=== PATIENT | female | born 1990 | race Caucasian/White ===

== ENCOUNTER → 2017-08-08 17:52 | Outpatient (CLI) | payer MEDICAID, SELFPAY ==
[2017-08-08 20:04] LABS: Chlamydia Trachomatis by PCR Negative (Negative); Neisserai gonorrhoeae by PCR Negative (Negative); Probe Check PASS; Sample Adequacy Control PASS; Specimen Processing Control PASS
[2017-08-15 14:43] LABS: HPV Reflexed? NOT INDICATED
== END ==
PROVIDERS: Visit Provider Obstetrics & Gynecology
DX: Z12.4 Encounter for screening for malignant neoplasm of cervix (principal); Z11.3 Encounter for screening for infections with a predominantly sexual mode of transmission
CPT/HCPCS: 87491; 87591; 88175; G0145

== ENCOUNTER → 2017-08-23 11:26 | Outpatient (CLI) | payer MEDICAID, SELFPAY ==
[2017-08-23 12:43] LABS: Absolute Lymphocyte Count 1.51 X10^3/ul (0.83-4.51); Absolute Neutrophil Count 5.1 X10^3/uL (2.0-7.7); Basophil# 0.02 X10^3/uL; Basophil% 0.3 % (0-1); Color, Urine Yellow (Yellow); Eosinophil# 0.13 X10^3/uL; Eosinophils% 1.7 % (0-5); Glucose, Dipstick Normal (Normal); Hematocrit 38.4 % (37-47); Ketone-Dipstick Negative (Negative); Leukocyte Esterase-Dipstick Negative /ul (Negative); Lymphocyte # 1.51 X10^3/ul (4.0); Lymphocyte % 20.1 % (19-41); Mean Corp Hgb Conc 33.9 g/gl (32-36); Mean Corpuscular Hgb 29.6 pg (27.0-32.0); Mean Corpuscular Volume 87.5 fL (81-99); Mean Platelet Vol. 9.8 fl (6.2-12.0); Monocyte# 0.77 X10^3/uL; Monocyte% 10.2 % (0-10); Neutrophil # 5.08 X10^3/uL (2.7-7.7); Neutrophil % 67.6 % (47-70); Nitrite-Dipstick Negative (Negative); Occult Blood-Urine 10 /ul (Negative); Platelet Count 305 K/mm3 (150-450); Protein-Dipstick Negative (Negative); RBC Distribution Width CV 13.4 % (11.6-14.6); RBC Distribution Width SD 41.9 fl (35.1-43.9); Red Blood Count 4.39 M/mm3 (4.2-5.4); Specific Gravity, Urine 1.025 (1.002-1.030); Urine Bilirubin Dipstick Negative (Negative); Urine Clarity Cloudy (Clear); Urine Urobilinogen Normal (Normal); White Blood Count 7.5 K/mm3 (4.4-11.0)
[2017-08-23 12:48] LABS: POSITIVE COUNT NO; POSITIVE DIFFERENTIAL NO; POSITIVE MORPHOLOGY NO
[2017-08-23 13:01] LABS: Thyroid Stim Hormone (TSH) 2.07 uIU/mL (0.358-3.74)
[2017-08-23 13:10] LABS: Amphetamine Urine VISTA NEGATIVE (<1000 ng/mL); Barbiturate Urine VISTA NEGATIVE (< 200 ng/mL); Benzodiazepine Urine VISTA NEGATIVE (< 200 ng/mL); Cocaine Urine VISTA NEGATIVE (< 300 ng/mL); Ecstacy Urine VISTA NEGATIVE (< 500 ng/mL); Methadone Urine VISTA NEGATIVE (< 300 ng/mL); PCP Urine VISTA NEGATIVE (< 25 ng/mL); THC Urine VISTA NEGATIVE (< 50 ng/mL); Vista UDS pH Range 5
[2017-08-23 13:13] LABS: COTININE Drug Screen Positive (<200 ng/mL)
[2017-08-24 05:02] LABS: Prenatal RPR NONREACTIVE (NONREACTIVE)
[2017-08-24 11:57] LABS: HEPATITIS B SURFACE AG Negative (Negative); Hep C Antibodies 0.1 s/co ratio (0.0-0.9)
[2017-08-24 13:19] LABS: HIV - WCH Non-Reactive (Nonreactive); Rubella IgG > 500.0 IU/mL
== END ==
PROVIDERS: Visit Provider Obstetrics & Gynecology
DX: Z34.81 Encounter for supervision of other normal pregnancy, first trimester (principal)
CPT/HCPCS: 36415; 80307; 81002; 84443; 85025; 86703; 86762; 86803; 87340

== ENCOUNTER 2017-09-19 18:00 | Emergency (ER) | payer MEDICAID, SELFPAY ==
[2017-09-19 18:01] VITALS: BP 125/73; PULSE 98; RESP 15; TEMP 37.2; O2SAT 98; BMI 32.0
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
== END 2017-09-19 18:45 | disposition home or self-care (01) ==
PROVIDERS: Emergency Provider Emergency Medicine; Family Provider Physician Assistant; PCP Physician Assistant
DX: O26.891 Other specified pregnancy related conditions, first trimester (principal); S16.1XXA Strain of muscle, fascia and tendon at neck level, initial encounter; Z3A.11 11 weeks gestation of pregnancy; V46.5XXA Car driver injured in collision with other nonmotor vehicle in traffic accident, initial encounter; Y93.I9 Activity, other involving external motion; Y92.410 Unspecified street and highway as the place of occurrence of the external cause; Y99.8 Other external cause status
CPT/HCPCS: 99282

== ENCOUNTER → 2018-01-22 13:21 | Outpatient (CLI) | payer MEDICAID, SELFPAY ==
[2018-01-22 13:43] LABS: Hematocrit 35.3 % (37-47); Hemoglobin 11.8 g/dl (12.0-15.0); Mean Corp Hgb Conc 33.4 g/gl (32-36); Mean Corpuscular Volume 89.8 fL (81-99); Mean Platelet Vol. 10.2 fl (6.2-12.0); Platelet Count 283 K/mm3 (150-450); RBC Distribution Width CV 13.9 % (11.6-14.6); RBC Distribution Width SD 45.1 fl (35.1-43.9); Red Blood Count 3.93 M/mm3 (4.2-5.4); White Blood Count 10.9 K/mm3 (4.4-11.0)
[2018-01-22 13:44] LABS: Scan Indicated on CBC? Y/N NO
[2018-01-22 14:12] LABS: Glucose Challenge Gest 1H 50g 105 mg/dL (70-140)
== END ==
PROVIDERS: Visit Provider Obstetrics & Gynecology
DX: Z34.83 Encounter for supervision of other normal pregnancy, third trimester (principal)
CPT/HCPCS: 36415; 82950; 85027

== ENCOUNTER → 2018-02-05 14:43 | Outpatient (CLI) | payer MEDICAID, SELFPAY ==
[2018-02-05 15:11] LABS: ROM Internal Control Test YES-OK TO RESULT pt. (Internal QC); ROM Patient Test Negative (Negative)
--- OUTSIDE RECORDS SUMMARY | 2018-05-10 02:56 | XMS RPT_ITS ---
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 [facility] [address] [place], [place], [address] CT/NG [facility] BY PCR Collected: 08/08/2017 Status: F Source: [place] 11:00 AM [facility] REPOSITORY TYPE CODE TESTS RESULT OUT OF RANGE REFERENCE UNITS LAB L8200.2100 Negative Normal Chlam Negative Trac PCR LAB L8200.2200 Negative Normal NG by Negative PCR Performed By: #### L8200.2000 #### [facility] [address] [place], [address] PAP I-G W/RFX HRHPV Collected: 08/08/2017 Status: F Source: [place] 11:00 AM [facility] REPOSITORY Order Comment: CYTOLOGY INFORMATION: - CLINICAL INFORMATION: HYSTERECTOMY - DATE LMP/MENOPAUSE: LMP - COLLECTION VIAL: Thin Prep Vial - METAL FRAMER SOURCE: CERVICAL/ENDOCERVICAL - COLLECTION TECHNIQUE: BRUSH/SPATULA Specimen Comment: [id number] Specimen Comment: No. of containers..01 ThinPrep Vial TYPE CODE TESTS RESULT OUT OF RANGE REFERENCE UNITS LAB L7400.0800 . Normal DIAGN Comment Result Comment: NEGATIVE FOR INTRAEPITHELIAL LESION AND MALIGNANCY. THIS SPECIMEN WAS RESCREENED PART OF OUR YOUTH TEACHER PROGRAM. LAB L7400.0900 . Normal ADEQ Comment Result Comment: Satisfactory for evaluation. Endocervical and/or squamous metaplastic cells (endocervical component) are present. LAB L7400.1400 . Normal PERFORM Comment Result Comment: Yris Mccullough, Pension Fund Manager (ASCP) LAB L7400.1500 . Normal QC Comment REV Result Comment: Lenore Hart Pension Fund Manager (ASCP) LAB L7400.2575 . Normal TEST METHOD Comment Result Comment: This liquid based ThinPrep(R) pap test was screened with the use of an image guided system. LAB L7400.2600 . Normal . COMM LAB L7400.2700 . Normal PAPSMR Comment Result Comment: The Pap smear is a screening test designed to aid in the detection of premalignant and malignant conditions of the uterine cervix. It is not a diagnostic procedure and should not be used as the sole means of detecting cervical cancer. Both false-positive and false-negative reports do occur. LAB L7400.2800 . Normal HPV RFLX Comment Result Comment: The HPV DNA reflex criteria were not met with this specimen result therefore, no HPV testing was performed. Performed at: - [facility] [id number] Nipping Machine Operator: Criss Lee MD, Phone: [phone] Performed By: #### L7400.0350 #### [facility] (refer to report for specific site) refer to report for address and phone number GROUP A STREP BY Collected: 06/27/2017 Status: F Source: [place] PCR 10:38 PM [facility] REPOSITORY TYPE CODE TESTS RESULT OUT OF REFERENCE UNITS RANGE LAB GASSRC Throat Swab GAS Specimen Source LAB PCRGAS Negative for Group A Strep Group A PCR Streptococcus by PCR. Result Comment: This test was developed and its performance characteristics determined by [facility] [place] ([facility]). It has not been cleared or approved by the FDA. [facility] is regulated under CLIA as qualified to perform high-complexity testing. This test is used for clinical purposes. It should not be regarded as inv estigational or for research. Performed By: #### GASPCR #### [facility] [address] [place], [place] [address] PROGRESS Observed: 06/27/2017 Status: COMPLETED Source: [place] 1:13 PM [facility] REPOSITORY HNO ID: [id number] Author: Manas Donnelly (Morgan) Service: (none) Author Type: Physician Embedded Software Developer Type: Progress Notes Filed: 06/27/2017 1:41 PM Note Text: Subjective HPI Pt presents withcough, sore throat, and congestion for 2 days. No nvd or diarrhea. No fever. She does have asthma. She hasn't had to use her inhaler. Her brother is ill as well with similar sx. Review of Systems Constitutional: Negative for fever. HENT: Positive for congestion and sore throat. Respiratory: Positive for cough. All other systems reviewed and are negative. PAST MEDICAL HISTORY Diagnosis Date - Eczema Current Outpatient Prescriptions: Liyhslnldtjjiws-Vjteklfxl-CW (BROMFED DM) 2-30-10 mg/5 mL syrup Take 10 mL by mouth four times daily as needed. Disp: 200 mL Rfl: 0 sulfamethoxazole-trimethoprim (BACTRIM DS) 800-160 mg per tablet Take 1 tablet by mouth twice daily. Disp: Rfl: No current facility-administered medications for this visit. PAST SURGICAL HISTORY Procedure Laterality Date - PAST SURGICAL HISTORY OF Right 1998 elbow fx repair FAMILY HISTORY Problem Relation Age of Onset - Cancer Maternal Grandfather lung - Ischemic Heart Disease Maternal Grandfather Social History Substance Use Topics - Smoking status: Current Every Day Smoker Packs/day: 0.75 - Smokeless tobacco: Never Used - Alcohol use Yes BP 100/60 Pulse 100 Temp 36 ?C (96.8 ?F) (Left Tympanic) Resp 14 Wt 69.4 kg (153 lb) SpO2 98% BMI 27.98 kg/m? Objective Physical Exam Constitutional: She is oriented to person, place, and time and well-developed, well-nourished, and in no distress. HENT: Head: Normocephalic and atraumatic. Right Ear: Tympanic membrane, external ear and ear canal normal. Left Ear: Tympanic membrane, external ear and ear canal normal. Nose: Mucosal edema and rhinorrhea present. Mouth/Throat: Uvula is midline and mucous membranes are normal. Posterior oropharyngeal edema and posterior oropharyngeal erythema present. No oropharyngeal exudate or tonsillar abscesses. Cardiovascular: Normal rate, regular rhythm and normal heart sounds. Pulmonary/Chest: Effort normal and breath sounds normal. Neurological: She is alert and oriented to person, place, and time. Skin: Skin is warm and dry. Psychiatric: Affect and judgment normal. Nursing note and vitals reviewed. ASSESSMENT/PLAN: 1. Sore throat - ICD9: 462, ICD10: J02.9 (primary diagnosis) - Rapid Strep negative in the office today and Throat culture pending - Discussed supportive care treatment with fluids, rest and analgesia. - RAPID STREP TEST B/O - GROUP A STREPTOCOCCUS BY PCR 2. Viral URI with cough - ICD9: 465.9, ICD10: J06.9, B97.89 - Discussed viral etiology and rationale for treatment. - Symptomatic treatment with prn analgesia - Supportive care with fluids and rest - Given Bromfed for sx. If not improved in one week follow up. Pt agreeable with this plan. BASILIA Orozco Observed: 06/27/2017 Status: COMPLETED Source: [place] 1:00 PM [facility] REPOSITORY Office Visit (WSTR) JARETH BALES ([id number]) 1990 F Date Time Provider Department 06/27/17 1:00 PM MANAS DONNELLY) WSTR During your visit today, we recorded the following information about you: Temperature Pulse Respiration Blood pressure 96.8 degrees 100/minute 14/minute 100/60 Weight 69.4 kg Manas Donnelly) 06/27/2017 1:41 PM Signed Subjective HPI Pt presents withcough, sore throat, and congestion for 2 days. No nvd or diarrhea. No fever. She does have asthma. She hasn't had to use her inhaler. Her brother is ill as well with similar sx. Review of Systems Constitutional: Negative for fever. HENT: Positive for congestion and sore throat. Respiratory: Positive for cough. All other systems reviewed and are negative. PAST MEDICAL HISTORY Diagnosis Date - Eczema Current Outpatient Prescriptions: Fmjhmynkgbokimb-Smgfjgper-FV (BROMFED DM) 2-30-10 mg/5 mL syrup Take 10 mL by mouth four times daily as needed. Disp: 200 mL Rfl: 0 sulfamethoxazole-trimethoprim (BACTRIM DS) 800-160 mg per tablet Take 1 tablet by mouth twice daily. Disp: Rfl: No current facility-administered medications for this visit. PAST SURGICAL HISTORY Procedure Laterality Date - PAST SURGICAL HISTORY OF Right 1998 elbow fx repair FAMILY HISTORY Problem Relation Age of Onset - Cancer Maternal Grandfather lung - Ischemic Heart Disease Maternal Grandfather Social History Substance Use Topics - Smoking status: Current Every Day Smoker Packs/day: 0.75 - Smokeless tobacco: Never Used - Alcohol use Yes BP 100/60 Pulse 100 Temp 36 ?C (96.8 ?F) (Left Tympanic) Resp 14 Wt 69.4 kg (153 lb) SpO2 98% BMI 27.98 kg/m? Objective Physical Exam Constitutional: She is oriented to person, place, and time and well-developed, well-nourished, and in no distress. HENT: Head: Normocephalic and atraumatic. Right Ear: Tympanic membrane, external ear and ear canal normal. Left Ear: Tympanic membrane, external ear and ear canal normal. Nose: Mucosal edema and rhinorrhea present. Mouth/Throat: Uvula is midline and mucous membranes are normal. Posterior oropharyngeal edema and posterior oropharyngeal erythema present. No oropharyngeal exudate or tonsillar abscesses. Cardiovascular: Normal rate, regular rhythm and normal heart sounds. Pulmonary/Chest: Effort normal and breath sounds normal. Neurological: She is alert and oriented to person, place, and time. Skin: Skin is warm and dry. Psychiatric: Affect and judgment normal. Nursing note and vitals reviewed. ASSESSMENT/PLAN: 1. Sore throat - ICD9: 462, ICD10: J02.9 (primary diagnosis) - Rapid Strep negative in the office today and Throat culture pending - Discussed supportive care treatment with fluids, rest and analgesia. - RAPID STREP TEST B/O - GROUP A STREPTOCOCCUS BY PCR 2. Viral URI with cough - ICD9: 465.9, ICD10: J06.9, B97.89 - Discussed viral etiology and rationale for treatment. - Symptomatic treatment with prn analgesia - Supportive care with fluids and rest - Given Bromfed for sx. If not improved in one week follow up. Pt agreeable with this plan. Manas Donnelly PA-C Referring Provider: SELF [200] Allergies As of Date: 06/27/2017 (No Known Allergies) Date Reviewed: 09/24/2015 Reviewed by: Eliane Tran LPN - Fully Assessed Reason for Visit: Cough [28] Chest Congestion [236] Primary Visit Diagnosis:Sore throat [J02.9] Other Visit Diagnosis:Viral URI with cough [J06.9, B97.89] Order(s):RAPID STREP TEST B/O [6396425] Order #: [id number] GROUP A STREPTOCOCCUS BY PCR [SQGASPCR] Order #: [id number] Kqkezbtpydjkqdm-Arplgktwm-PG (BROMFED DM) 2-30-10 mg/5 mL syrupTake 10 mL by mouth four times daily as needed.Disp: 200 mLRfl: 0 Prescriptions as of 06/27/2017 Sig: BROMPHENIRAMINE-PSEUDOEPHEDRI* Take 10 mL by mouth four time* SULFAMETHOXAZOLE 800 MG-TRIME* Take 1 tablet by mouth twice * Problem List As Of Date 06/27/2017 Noted Resolved Breast abscess [N61.1] INVALID FOR* Prescriptions ordered this encounter Disp Refills Start End DYCBCZHYNOVWRLN-GVTVMUGCKPEVNBA-FS 2* 200 * 0 06/27/2017 Route: ORAL Sig: Take 10 mL by mouth four times daily as needed. Encounter Status:Closed by MANAS DONNELLY PA-C on 06/27/17 ALLERGIES ALLERGIES DATE TYPE / CODE NAME / CODE REACTION SEVERITY SOURCE 03/08/2018 Drug No Known Unknown [place] Allergy/224099226(S Allergies/F0019 [facility]) [address](RXNORM) Hospital Repository Miscellaneous No Known Drug Moderate [place] Pomereeligio Allergy/466606544(S Allergies (Severity [facility]) [facility] Drug NO KNOWN [place] Class/342823008(SNO ALLERGIES [facility]) [place] Repository ENCOUNTERS ENCOUNTERS ADMIT/DISCHARGE ACCOUNT ADMITTING ENCOUNTER LOCATION SOURCE NUMBER CLASS 03/09/2018/03/09/[id number] ing:WPOUT Repository 03/08/2018/03/08/[id number] ing:WPOUTRoom Repository : WP013 03/05/2018 [id number] [facility] ing:LABSPEC Repository 02/05/2018 [id number] [facility] ing:LABSPEC Repository 01/22/2018 [id number] [facility] ing:WOBLAB Repository 10/31/2017/11/01/[id number] YARA [facility] [place] [address] 18 [place]: ERBed: B [facility] Repository 09/19/2017/09/20/19 [id number] Emergency [address] ing:ED Repository 08/23/2017 [id number] [facility] ing:WOBLAB Repository 08/08/2017 [id number] [facility] ing:LABSPEC Repository 06/27/2017/06/29/19 [id number] Ambulatory [address] Repository PAYERS PAYERS ENCOUNTER GUARANTOR PAYER SUBSCRIBER SOURCE 03/09/2018 JARETH R Primary Insurance:[facility] Diana [facility] [address] [place] Number: [id number] Hospital [address]Sls: 330 [id number] Repository [phone] () Date:[id number] [address] [address]V: 03/09/2018 Secondary NOT GIVENUNK [place] Insurance:SELF PAY [facility] Number: Effective Repository Date:2018-03-09 03/08/2018 JARETH R Primary Insurance:[facility] Diana FischerFaisalAurora East HospitalDOB: [address], [place] Number: [id number] Hospital [address]Xlz: 330 [id number] Repository [phone] () Date:[id number] [address] [address]LU: 03/08/2018 Secondary NOT GIVENUNK [place] Insurance:SELF PAY [facility] Number: Effective Repository Date:2018-03-08 03/05/2018 JARETH R Primary Insurance:[facility] Diana FischerFaisalAurora East HospitalDOB: [address] [place] Number: [id number] Hospital [address]Ecv: 330 [id number] Repository [phone] () Date:[id number] [address]OW: 03/05/2018 Secondary NOT GIVENUNK [place] Insurance:SELF PAY [facility] Number: Effective Repository Date:2018-03-05 02/05/2018 [place] R Primary Insurance:[facility]: [address] Number: [id number] Hospital [address]Gmx: 330 [id number] Repository [phone] (HP) Date:[id number] [address]RW: 02/05/2018 Secondary NOT GIVENUNK [place] Insurance:SELF PAY [facility] Number: Effective Repository Date:2018-02-05 01/22/2018 [place] R Primary Insurance:[facility]ESD[facility]: [address] Number: [id number] Hospital [address]Bbp: 330 [id number] Repository [phone] (HP) Date:[id number] [address]UJ: 01/22/2018 Secondary NOT GIVENUNK [place] Insurance:SELF PAY [facility] Number: Effective Repository Date:2018-01-22 10/31/2017 [facility] Booker Mayo GARNESDOB: Insurance:[facility]: [facility] [id number] [id number] [facility] APT Repository [phone]: Number: AAPT [id number] [address] [place] [address] () Date:Plan Name:[id number] 09/19/2017 [facility] Primary Insurance:[facility] Diana [facility]: [address] Number: [id number] Hospital [address]Spx: 330 [id number] Repository [phone] () Date:[id number] [address]QY: 09/19/2017 Secondary NOT GIVENUNK [place] Insurance:SELF PAY [facility] Number: Effective Repository Date:2017-09-19 08/23/2017 [facility] Primary Insurance:[facility] systemD[facility]: [facility] [address] [place] [address], [place] Number: [id number] Hospital [address]Yyl: [phone] [id number] Repository [phone] () Date:0400-07-19TZ [address] [address]MX: 08/23/2017 Secondary NOT GIVENUNK Faisal Insurance:SELF PAY [facility] Number: Effective Repository Date:2017-08-23 08/08/2017 [place] R [facility] [place] Number: [id number] Hospital [address]Iai: [phone] [id number] Repository [phone] () Date:[id number] [address] [address]UE: 08/08/2017 Secondary NOT GIVENUNK [place] Insurance:SELF PAY [facility] Number: Effective Repository Date:2017-08-08
== END ==
PROVIDERS: Visit Provider Obstetrics & Gynecology
DX: Z34.83 Encounter for supervision of other normal pregnancy, third trimester (principal)
CPT/HCPCS: 84112

== ENCOUNTER → 2018-03-05 14:34 | Outpatient (CLI) | payer MEDICAID, SELFPAY | PROVIDERS: Visit Provider Obstetrics & Gynecology | DX: Z36.85 Encounter for antenatal screening for Streptococcus B (principal) | CPT/HCPCS: 87081 ==

== ENCOUNTER 2018-03-08 04:30 | Outpatient (CLI) | payer MEDICAID, SELFPAY ==
[2018-03-08 05:02] VITALS: BMI 39.0
[2018-03-08] MEDS: 0.9% Saline Lock 10 ML Syringe IV (05:20)
[2018-03-08 05:28] LABS: Bacteria 0 SEEN /hpf (None Seen); Mucous, Urine 0 SEEN /hpf (<or=2+); Red Blood Cells-Urine 0 SEEN /hpf (0-5)
[2018-03-08 05:29] LABS: Color, Urine Yellow (Yellow); Glucose, Dipstick Normal (Normal); Ketone-Dipstick Negative (Negative); Leukocyte Esterase-Dipstick 100 /ul (Negative); Nitrite-Dipstick Negative (Negative); Occult Blood-Urine 10 /ul (Negative); Protein-Dipstick Negative (Negative); Specific Gravity, Urine 1.015 (1.002-1.030); Urine Bilirubin Dipstick Negative (Negative); Urine Clarity Clear (Clear); Urine Urobilinogen Normal (Normal)
[2018-03-08 05:39] LABS: Hematocrit 35.7 % (37-47); Mean Corp Hgb Conc 33.6 g/gl (32-36); Mean Corpuscular Hgb 30.5 pg (27.0-32.0); Mean Corpuscular Volume 90.8 fL (81-99); Mean Platelet Vol. 10.1 fl (6.2-12.0); Platelet Count 280 K/mm3 (150-450); RBC Distribution Width CV 14.3 % (11.6-14.6); RBC Distribution Width SD 46.7 fl (35.1-43.9); Red Blood Count 3.93 M/mm3 (4.2-5.4); White Blood Count 11.2 K/mm3 (4.4-11.0)
[2018-03-08 05:41] LABS: Scan Indicated on CBC? Y/N NO
[2018-03-08 05:44] LABS: ALB/GLOB Ratio 0.7 RATIO (0.9-2.4); AST(SGOT) 10 U/L (15-37); Alanine Aminotransfer ALT/SGPT 20 U/L (13-56); Albumin, Serum 2.6 g/dL (3.2-5.0); Alkaline Phosphatase 69 U/L (45-117); Anion Gap 10 (5-15); BUN 12 mg/dL (7-18); Calcium,Total 8.5 mg/dL (8.5-10.1); Chloride 109 mmol/L (98-107); Creatinine, Serum 0.44 mg/dL (0.55-1.02); EST Glomerular Filtration Rate 182 mL/min (>60); Est Glom Filt Rate - Afr Amer 220 mL/min (>60); Estimated Creatinine Clearance 154.59 ml/min; Globulin 3.5 g/dL (2.2-4.2); Glucose 97 mg/dL (74-106); Potassium 3.9 mmol/L (3.5-5.1); Protein, Total 6.1 g/dL (6.4-8.2); Sodium Level 139 mmol/L (136-145)
[2018-03-08 05:49] LABS: ROM Internal Control Test YES-OK TO RESULT pt. (Internal QC); ROM Patient Test Negative (Negative)
[2018-03-08 05:59] LABS: Squamous Epithelial Cells - UA 5-10 SEEN /hpf (5-10); White Blood Cells 5-10 SEEN /hpf (0-5)
--- NOTE | 2018-03-08 07:53 | OB.TRI.NOTE ---
- Problem List (1) 35 weeks gestation of Status: Acute (2) contractions Status: Acute History of Present Illness Date of Service: 03/08/18 Was patient seen by the physician?: Yes Reason For Visit: R/O LABOR Final LYLE: 04/07/18 Final LYLE Source: US <20 weeks Gestational age: 35 Weeks and 5 Days History of Present Illness: 27yo @ 35 5/7wga with c/o painful contractions that started overnight. She was seen in office 03/05/17 and exam /3. She denies fever, chills, nausea, vomiting, diarrhea, dysuria, frequency, urgency, hematuria. +FM, no vaginal bleeding. She has some discharge and is uncertain of leaking of fluid. Allergies No Known Allergies Allergy (Verified 03/08/18 05:04) Laboratory Studies: Laboratory Tests 03/08/18 03/08/18 03/08/18 Range/Units 05:20 05:20 04:50 WBC 11.2 H (4.4-11.0) K/mm3 RBC 3.93 L (4.2-5.4) M/mm3 Hgb 12.0 (12.0-15.0) g/dl Hct 35.7 L (37-47) % MCV 90.8 (81-99) fL MCH 30.5 (27.0-32.0) pg MCHC 33.6 (32-36) g/gl RDW 14.3 (11.6-14.6) % RDW Differential 46.7 H (35.1-43.9) fl Plt Count 280 (150-450) K/mm3 MPV 10.1 (6.2-12.0) fl Sodium 139 (136-145) mmol/L Potassium 3.9 (3.5-5.1) mmol/L Chloride 109 H (98-107) mmol/L Carbon Dioxide 20.0 L (21.0-32.0) mmol/L Anion Gap 10 (5-15) BUN 12 (7-18) mg/dL Creatinine 0.44 L (0.55-1.02) mg/dL Estim Creat Clear Calc 154.59 ml/min Est GFR (MDRD) Af Amer 220 (>60) mL/min Est GFR (MDRD) Non-Af 182 (>60) mL/min BUN/Creatinine Ratio 27.0 H (10-20) RATIO Glucose 97 (74-106) mg/dL Calcium 8.5 (8.5-10.1) mg/dL Total Bilirubin 0.20 (0.20-1.00) mg/dL AST 10 L (15-37) U/L ALT 20 (13-56) U/L Alkaline Phosphatase 69 (45-117) U/L Total Protein 6.1 L (6.4-8.2) g/dL Albumin 2.6 L (3.2-5.0) g/dL Globulin 3.5 (2.2-4.2) g/dL Albumin/Globulin Ratio 0.7 L (0.9-2.4) RATIO Urine Color (Yellow) Urine Clarity (Clear) Urine pH (5.0 - 8.0) Ur Specific [place] (1.002-1.030) Urine Protein (Negative) mg/dl Urine Glucose (UA) (Normal) mg/dl Urine Ketones (Negative) mg/dl Urine Occult Blood (Negative) /ul Urine Nitrite (Negative) Urine Bilirubin (Negative) mg/dL Urine Urobilinogen (Normal) mg/dl Ur Leukocyte Esterase (Negative) /ul Urine RBC (0-5) /hpf Urine WBC (0-5) /hpf Ur Squamous Epith Cells (5-10) /hpf Urine Bacteria (None Seen) /hpf Urine Mucus (<or=2+) /hpf Vag Amniotic Fld Detect Negative (Negative) 03/08/18 Range/Units 04:40 WBC (4.4-11.0) K/mm3 RBC (4.2-5.4) M/mm3 Hgb (12.0-15.0) g/dl Hct (37-47) % MCV (81-99) fL MCH (27.0-32.0) pg MCHC (32-36) g/gl RDW (11.6-14.6) % RDW Differential (35.1-43.9) fl Plt Count (150-450) K/mm3 MPV (6.2-12.0) fl Sodium (136-145) mmol/L Potassium (3.5-5.1) mmol/L Chloride (98-107) mmol/L Carbon Dioxide (21.0-32.0) mmol/L Anion Gap (5-15) BUN (7-18) mg/dL Creatinine (0.55-1.02) mg/dL Estim Creat Clear Calc ml/min Est GFR (MDRD) Af Amer (>60) mL/min Est GFR (MDRD) Non-Af (>60) mL/min BUN/Creatinine Ratio (10-20) RATIO Glucose (74-106) mg/dL Calcium (8.5-10.1) mg/dL Total Bilirubin (0.20-1.00) mg/dL AST (15-37) U/L ALT (13-56) U/L Alkaline Phosphatase (45-117) U/L Total Protein (6.4-8.2) g/dL Albumin (3.2-5.0) g/dL Globulin (2.2-4.2) g/dL Albumin/Globulin Ratio (0.9-2.4) RATIO Urine Color Yellow (Yellow) Urine Clarity Clear (Clear) Urine pH 7.0 (5.0 - 8.0) Ur Specific [place] 1.015 (1.002-1.030) Urine Protein Negative (Negative) mg/dl Urine Glucose (UA) Normal (Normal) mg/dl Urine Ketones Negative (Negative) mg/dl Urine Occult Blood 10 H (Negative) /ul Urine Nitrite Negative (Negative) Urine Bilirubin Negative (Negative) mg/dL Urine Urobilinogen Normal (Normal) mg/dl Ur Leukocyte Esterase 100 H (Negative) /ul Urine RBC 0 SEEN (0-5) /hpf Urine WBC 5-10 SEEN (0-5) /hpf Ur Squamous Epith Cells 5-10 SEEN (5-10) /hpf Urine Bacteria 0 SEEN (None Seen) /hpf Urine Mucus 0 SEEN (<or=2+) /hpf Vag Amniotic Fld Detect (Negative) Review of Systems Constitutional: Denies: Chills, Fever Gastrointestinal: Denies: Abdominal Pain, Diarrhea, Nausea, Vomiting Genitourinary: Denies: Dysuria, Frequency, Hematuria Physical Exam Vitals: AVSS General: Alert, Oriented x3, Cooperative, No apparent distress HEENT: Atraumatic, Normocephalic Abdomen: Soft, Non Tender, Non-Distended, Gravid Neurological: Neuro grossly intact NST - FHR Rate Baby A Baseline: 130 Variability:: Moderate Accelerations:: 15 x 15 Decelerations:: None NST Reactive:: Yes FHR Category:: Category I Uterine Activity:: 2-05/29 Impression/Plan 27yo @ 35 5/7wga with threatened labor, Cat I FHR -Betamethasone for FLM -U/A - possibly contaminated vs. UTI. Rx Keflex, Urine culture pending -Will continue to observe at this time -Rapid GBS pending
[2018-03-08] MEDS: Betamethasone/Betamethasone 30 MG/5 ML Vial 12 MG IM (08:10)
[2018-03-08] MEDS: Cephalexin 500 MG Capsule PO (08:49)
[2018-03-08 09:19] LABS: Group B Strep DNA By PCR Negative (Negative); Internal Control PASS; Probe Check PASS; Specimen Processing Control PASS
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
== END 2018-03-08 13:20 | disposition home or self-care (01) ==
LOC: WPOUT 04:54 → WP 04:55
PROVIDERS: Referring Provider Obstetrics & Gynecology; Visit Provider Obstetrics & Gynecology
DX: O60.03 Preterm labor without delivery, third trimester (principal); Z3A.35 35 weeks gestation of pregnancy
CPT/HCPCS: 36415; 59025; 59050; 80053; 81001; 84112; 85027; 87081; 87653; 99218; A4216; G0378; J0702

== ENCOUNTER 2018-03-09 08:00 | Outpatient (CLI) | payer MEDICAID, SELFPAY ==
[2018-03-08 05:02] VITALS: BMI 39.0
[2018-03-09] MEDS: Betamethasone/Betamethasone 30 MG/5 ML Vial 12 MG IM (08:22)
--- NOTE | 2018-03-09 10:53 | OB.TRI.NOTE ---
- Problem List (1) 35 weeks gestation of Status: Acute History of Present Illness Date of Service: 03/09/18 Reason For Visit: CELESTONE SHOT Date of Service: 03/09/18 Final LYLE Source: US <20 weeks Gestational age: 35 weeks 6 days History of Present Illness: 27yo @ 35 6/7 weeks gestational age presents for betamethasone #2. She was seen 03/08/18 in triage and observed with contractions and cervix dilated to 2-3 cm. Allergies No Known Allergies Allergy (Verified 03/08/18 05:04) Impression/Plan Betamethasone #2/2 given. D/c home.
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
== END 2018-03-09 08:30 | disposition home or self-care (01) ==
LOC: WPOUT 08:03 → WP 08:04
PROVIDERS: Referring Provider Obstetrics & Gynecology; Visit Provider Obstetrics & Gynecology
DX: O60.03 Preterm labor without delivery, third trimester (principal); Z3A.35 35 weeks gestation of pregnancy
CPT/HCPCS: 96372; 99218; G0378; J0702

== ENCOUNTER 2018-03-15 18:00 | Outpatient (CLI) | payer MEDICAID, SELFPAY ==
[2018-03-15 18:19] VITALS: BMI 37.9
[2018-03-15 18:31] LABS: Bacteria 0 SEEN /hpf (None Seen); Mucous, Urine 0 SEEN /hpf (<or=2+)
[2018-03-15 19:45] LABS: Color, Urine Yellow (Yellow); Glucose, Dipstick Normal (Normal); Ketone-Dipstick Negative (Negative); Leukocyte Esterase-Dipstick 500 /ul (Negative); Nitrite-Dipstick Negative (Negative); Occult Blood-Urine 25 /ul (Negative); Protein-Dipstick Negative (Negative); Urine Bilirubin Dipstick Negative (Negative); Urine Clarity Clear (Clear); Urine Urobilinogen Normal (Normal)
[2018-03-15 20:11] LABS: Amorphous Sediment 1+ PHOS; Red Blood Cells-Urine 0-5 SEEN /hpf (0-5); Squamous Epithelial Cells - UA 5-10 SEEN /hpf (5-10); White Blood Cells 10-25 SEEN /hpf (0-5)
[2018-03-15 20:13] LABS: ROM Internal Control Test YES-OK TO RESULT pt. (Internal QC); ROM Patient Test Negative (Negative)
--- NOTE | 2018-03-16 04:32 | OB.TRI.HP_ITS ---
History of Present Illness Date of Service: 03/15/18 Was patient seen by the physician?: No Reason For Visit: CONTRACTIONS Date of Service: 03/15/18 Final LYLE: 04/07/18 Final LYLE Source: US <20 weeks Gestational age: 36 Weeks and 5 Days History of Present Illness: 27 yo with h/o prior 38 wk delivery presents with UCs. ? SROM for labor check. Seen approx 1 wk ago for UCs and given betamethasone then as ruled out for labor. Allergies No Known Allergies Allergy (Verified 03/08/18 05:04) Laboratory Studies: Laboratory Tests 03/15/18 03/15/18 Range/Units 19:39 18:25 Urine Color Yellow (Yellow) Urine Clarity Clear (Clear) Urine pH 7.0 (5.0 - 8.0) Ur Specific [place] 1.010 (1.002-1.030) Urine Protein Negative (Negative) mg/dl Urine Glucose (UA) Normal (Normal) mg/dl Urine Ketones Negative (Negative) mg/dl Urine Occult Blood 25 H (Negative) /ul Urine Nitrite Negative (Negative) Urine Bilirubin Negative (Negative) mg/dL Urine Urobilinogen Normal (Normal) mg/dl Ur Leukocyte Esterase 500 H (Negative) /ul Urine RBC 0-5 SEEN (0-5) /hpf Urine WBC 10-25 SEEN (0-5) /hpf Ur Squamous Epith Cells 5-10 SEEN (5-10) /hpf Amorphous Sediment 1+ PHOS Urine Bacteria 0 SEEN (None Seen) /hpf Urine Mucus 0 SEEN (<or=2+) /hpf Vag Amniotic Fld Detect Negative (Negative) Physical Exam Cervix Dilation (cm): 4 - per RN check. No change on recheck NST - FHR Rate Baby A Baseline: 120-130s avg variability. Accels to 150s Variability:: Moderate Accelerations:: 15 x 15 Decelerations:: None NST Reactive:: Yes, Appropriate for gestational age FHR Category:: Category I Uterine Activity:: no regular UCs Impression/Plan 36 5/7 wk EGA female FALSE labor UA neg for bacteria. ROM test NEGATIVE Home return if inc s/sx of labor Keep next ofc appt
== END 2018-03-15 20:40 | disposition home or self-care (01) ==
LOC: WPOUT 18:14 → WP 18:15
PROVIDERS: Visit Provider Obstetrics & Gynecology
DX: O47.03 False labor before 37 completed weeks of gestation, third trimester (principal); Z3A.36 36 weeks gestation of pregnancy
CPT/HCPCS: 59025; 59050; 81001; 84112; 99218; G0378

== ENCOUNTER 2018-03-18 21:30 | Inpatient (IN) | payer MEDICAID, SELFPAY ==
[2018-03-18 22:30] VITALS: BMI 39.5
[2018-03-18] MEDS: Lactated Ringers 1,000 ML 50 ML IV ×2 (22:30→23:42)
[2018-03-18 22:57] LABS: Hematocrit 36.4 % (37-47); Hemoglobin 11.9 g/dl (12.0-15.0); Mean Corp Hgb Conc 32.7 g/gl (32-36); Mean Corpuscular Hgb 29.9 pg (27.0-32.0); Mean Corpuscular Volume 91.5 fL (81-99); Mean Platelet Vol. 10.1 fl (6.2-12.0); Platelet Count 275 K/mm3 (150-450); RBC Distribution Width CV 14.7 % (11.6-14.6); RBC Distribution Width SD 48.8 fl (35.1-43.9); Red Blood Count 3.98 M/mm3 (4.2-5.4); White Blood Count 12.2 K/mm3 (4.4-11.0)
[2018-03-18 23:02] LABS: Scan Indicated on CBC? Y/N NO
[2018-03-19] VITALS (7 sets, daily range): BP systolic 114–132; BP diastolic 55–84; PULSE 78–111; RESP 16–18; TEMP 36.2–36.7; O2SAT 97–100
[2018-03-19] MEDS: fentaNYL-bupivacaine (epidural) 100 ML BAG EPIDURAL
[2018-03-19] MEDS: Acetaminophen 325 MG Tablet PO (03:21)
[2018-03-19] MEDS: Oxytocin 30 units/NS 500 ml 30 UNITS/500 ML IV.SOLN 334 UNITS IV (04:26)
--- NOTE | 2018-03-19 04:41 | PCM.OB.VAG ---
Vaginal Delivery Maternal Presentation: Active Labor, Spontaneous Rupture of Membranes Amniotic Membrane Rupture Type: Spontaneous at home Amniotic Fluid Description: Clear Final LYLE: 04/07/18 Final LYLE Source: US <20 weeks Gestational age: 37 Weeks and 2 Days Date of Procedure: 03/19/18 Pre-Operative Diagnosis: IUP Post-Operative Diagnosis: IUP Surgery/ Procedure Performed: Spontaneous Vaginal Delivery Type of Anesthesia: Epidural Description of Procedure: Spontaneous vaginal delivery of a viable male with Apgars of 8/9 from an occiput anterior presentation with clear amniotic fluid and normal three-vessel placenta. No episiotomy or laceration. Sponges okay. Delivery physician: Mati Mcginnis MD. Presentation: Vertex Placental Delivery Description: Spontaneous Placenta Disposition: [facility] Cord Vessel Description: 3 Vessels Cord Gases drawn per routine: ABG Cord Entanglement: None Estimated Blood Loss: 250 cc A gender: Male (1 minute): 8 (5 minute): 9 Episiotomy Description: None Laceration: None Medications given after delivery: IV Pitocin Complications: None
--- NOTE | 2018-03-19 04:43 | PCM.DCVAG ---
Discharge Diet: No Restrictions Discharge Activity: May Shower, May Take a Tub Bath May resume sexual activity in: 4-6 weeks Additional Activity Instructions:: Nothing in the vagina for 4-6 weeks. You may return to work/school in 6 weeks. Call your doctor if you observe: Fever of 101 or Higher, Inability to urinate, Inability to have a bowel movement, Using more than one pad per hour Additional Instructions: If you experience any of the following, contact your healthcare provider. Bleeding that soaks a pad every hour for 2 hours Unrelieved incision or abdominal pain Swelling, redness, discharge or bleeding from your incision or episiotomy site Your incision begins to separate Problems urinating (including inability to urinate or burning while urinating). Visual changes Severe headache Flu-like symptoms Pain or redness in one of both of your breasts Pain, warmth, tenderness or swelling in your legs, especially the calf area Frequent nausea and vomiting Symptoms of depression or anxiety If you experience any of the following, call 911 or go to the nearest Emergency Room. Chest pain Problems breathing Seizure activity Partial or complete paralysis of a body part, slurred speech, weakness or drooping of the face, or a sudden inability to walk or hold your balance Allergies/Adverse Reactions: Allergies No Known Allergies Allergy (Verified 03/18/18 22:56) Medications to take at Discharge Vits [Prenatabs FA ] 1 tablet PO DAILY 03/08/18 Please Follow Up With: Billy Kaplan MD - [phone] When: Call to make an appointment with your doctor in 6 weeks. Test Results: Test results from this visit will be discussed in further detail at your follow-up appointment, if applicable.
--- NOTE | 2018-03-19 04:44 | DCINST_ITS ---
Discharge Diet: No Restrictions Discharge Activity: May Shower, May Take a Tub Bath May resume sexual activity in: 4-6 weeks Additional Activity Instructions:: Nothing in the vagina for 4-6 weeks. You may return to work/school in 6 weeks. Call your doctor if you observe: Fever of 101 or Higher, Inability to urinate, Inability to have a bowel movement, Using more than one pad per hour Additional Instructions: If you experience any of the following, contact your healthcare provider. * Bleeding that soaks a pad every hour for 2 hours * Unrelieved incision or abdominal pain * Swelling, redness, discharge or bleeding from your incision or episiotomy site * Your incision begins to separate * Problems urinating (including inability to urinate or burning while urinating). * Visual changes * Severe headache * Flu-like symptoms * Pain or redness in one of both of your breasts * Pain, warmth, tenderness or swelling in your legs, especially the calf area * Frequent nausea and vomiting * Symptoms of depression or anxiety If you experience any of the following, call 911 or go to the nearest Emergency Room. * Chest pain * Problems breathing * Seizure activity * Partial or complete paralysis of a body part, slurred speech, weakness or drooping of the face, or a sudden inability to walk or hold your balance Allergies/Adverse Reactions: Allergies No Known Allergies Allergy (Verified 03/18/18 22:56) Medications to take at Discharge Vits [Prenatabs FA ] 1 tablet PO DAILY 03/08/18 Please Follow Up With: Billy Kaplan MD - [phone] When: Call to make an appointment with your doctor in 6 weeks. Test Results: Test results from this visit will be discussed in further detail at your follow- up appointment, if applicable.
[2018-03-19] MEDS: Oxytocin 30 units/NS 500 ml 30 UNITS/500 ML IV.SOLN 167 UNITS IV (04:56)
[2018-03-19] MEDS: Acetaminophen 500 MG Tablet 1000 MG PO (08:28)
[2018-03-19] MEDS: Ibuprofen 600 MG Tablet PO (18:54)
[2018-03-20] MEDS: Ibuprofen 600 MG Tablet PO ×2 (00:33→08:30)
[2018-03-20 04:30] VITALS: BP 103/68; PULSE 81; RESP 16; TEMP 36
--- NOTE | 2018-03-20 08:13 | PCM.PN.OB ---
Subjective: No specific complaints. . Bleeding light. Objective: Afeb VSS - Physical Exam General: Alert, Oriented x3, Cooperative, No apparent distress Lungs: Clear to auscultation, Normal air movement Cardiovascular: Regular rate, Regular Rhythm Abdomen: Soft, Non Tender, Non-Distended, - - Fundus firm nontender Extremities: No edema Skin: No rashes Neurological: Neuro grossly intact Psych/Mental Status: Normal Affect Comment: Lochia light Vital Signs Temp Pulse Resp BP Pulse Ox 96.8 F L 81 16 103/68 98 03/20/18 04:30 03/20/18 04:30 03/20/18 04:30 03/20/18 04:30 03/19/18 20:00 Oxygen Delivery Method Room Air Weight: 216 lb 0.848 oz Body Mass Index (BMI) 39.5 Intake and Output for Last 24 Hours 03/18/18 03/19/18 03/20/18 23:59 23:59 23:59 Intake Total 2768 / 2768 Output Total 2750 / 2750 Balance Medical Necessity - Tobacco Use Smoking Status: Current some day smoker Assessment/Plan All Active Problems 35 weeks gestation of (Acute) contractions (Acute) Doing well. No complaints. Home going instructions and warnings given.
[2018-03-20 08:15] VITALS: BP 137/72; PULSE 86; RESP 18; TEMP 36.6; O2SAT 98
--- NOTE | 2018-03-20 08:24 | PCM.DC.SUM ---
Discharge Date and Diagnosis Date of Admission: 03/18/18 Date of Discharge: 03/20/18 - Primary Discharge Diagnosis S/P Hospital Course and Treatment Operations: None Procedures: - - Summary of Care Provided: The patient is a 27 year old F [admitted at term with SROM. Progressed in labor to FD then pushed for a short time to deliver a live without complication. Post course unremarkable.] - Physical Exam Vital Signs Temp Pulse Resp BP Pulse Ox 96.8 F L 81 16 103/68 98 03/20/18 04:30 03/20/18 04:30 03/20/18 04:30 03/20/18 04:30 03/19/18 20:00 Oxygen Delivery Method Room Air Weight: 216 lb 0.848 oz Body Mass Index (BMI) 39.5 Intake and Output for Last 24 Hours 03/18/18 03/19/18 03/20/18 23:59 23:59 23:59 Intake Total 2768 / 2768 Output Total 2750 / 2750 Balance Discharge Diet: No Restrictions Discharge Activity: Return to Normal Activity, May Drive, May Shower, May Take a Tub Bath Return to work on:: 05/17/18 May resume sexual activity in: 4-6 weeks Additional Activity Instructions:: Nothing in the vagina for 4-6 weeks. You may return to work/school in 6 weeks. Call your doctor if your incision/area has: Sudden Increased Bleeding, Increased Pain/ Swelling, Foul Smelling Discharge Call your doctor if you observe: Fever of 101 or Higher, Inability to urinate, Inability to have a bowel movement, Using more than one pad per hour, Chest pain, Calf discomfort, Uncontrolled pain Cleanse incision/area with: Soap & Water Home Medications: Medications to take at Discharge Vits [Prenatabs FA ] 1 tablet PO DAILY 03/08/18 Ibuprofen [Motrin] 600 mg PO Q6H PRN PRN #30 tab 03/20/18 Following Prescrptions Were Given to Patient: Ibuprofen [Motrin] 600 mg PO Q6H PRN PRN #30 tab PRN Reason: pain or cramping Please Follow Up With: Billy Kaplan MD - [phone] When: 6 weeks Disposition: Home Minutes spent on discharge:: 15 Patient Condition:: Good Medical Necessity - Tobacco Use Smoking Status: Current some day smoker Meaningful Use Info Meaningful Use Diagnoses (Choose all that apply): None applicable
[2018-03-20 14:30] VITALS: BP 133/80; PULSE 89; RESP 16; TEMP 36.3
--- NOTE | 2018-03-20 14:49 | NURSING ---
Asking questions regarding bottle feeding before discharge. Answers given and denies questions.
== END 2018-03-20 14:55 | disposition home or self-care (01) | DRG 560 ==
PROVIDERS: Admitting Provider Obstetrics & Gynecology; Referring Provider Obstetrics & Gynecology; Visit Provider Obstetrics & Gynecology
DX: O99.334 Smoking (tobacco) complicating childbirth (principal); Z3A.37 37 weeks gestation of pregnancy; Z37.0 Single live birth; O47.03 False labor before 37 completed weeks of gestation, third trimester; Z3A.36 36 weeks gestation of pregnancy
CPT/HCPCS: 59025; 59050; 81001; 84112; 85027; 86850; 86900; 99218; J7120; G0378